=== PATIENT | male | born 1980 | race Caucasian/White ===

== ENCOUNTER → 2017-01-07 | Outpatient (CLI) | payer OTHER ==
[~2017-01-07] MED LIST: IOHEXOL 300 MG/ML 75 ML VIAL. IV ONE
--- NOTE | 2017-01-07 14:08 | RAD ---
EXAM: CT abdomen/pelvis with contrast. HISTORY: Incontinence, pelvic for collapse. TECHNIQUE: Computed tomography of the abdomen and pelvis was performed after the intravenous administration of 75 mL Omnipaque 300. COMPARISON: None. FINDINGS: Lung windows through the visualized portions of the bases reveal mild atelectasis. Bone windows reveal no suspicious lesions. There is mild grade 1 anterolisthesis at L5-S1 secondary to bilateral L5 pars interarticularis defects. There is no clear central canal stenosis or intrathecal mass by CT. Pelvic floor geometry is unremarkable by CT on this nonstressed exam. There is no enterocele or rectocele currently. The liver, gallbladder, pancreas, adrenal glands, spleen and kidneys are unremarkable. There are no pathologically enlarged lymph nodes. The appendix is not inflamed. There is no obstruction. IMPRESSION: 1. Unremarkable pelvic floor geometry on this nonstressed exam. No rectocele or prolapse currently. Functional assessment could be useful if there is persistent concern. 2. Grade 1 anterolisthesis at L5-S1 from bilateral L5 pars interarticularis defects. No clear central canal stenosis by CT. *One or more of the following individualized dose reduction techniques were utilized for this examination: 1. Automated exposure control. 2. Adjustment of the mA and/or kV according to patient size. 3. Use of iterative reconstruction technique.
== END | disposition home or self-care (01) ==
LOC: CT 13:15
PROVIDERS: ATTEND Family Medicine
DX: M62.58 Muscle wasting and atrophy, not elsewhere classified, other site (principal); R32 Unspecified urinary incontinence; J98.11 Atelectasis
CPT/HCPCS: 74177; Q9967